=== PATIENT | male | born 1995 | race Caucasian/White ===

== ENCOUNTER 2021-02-25 13:16 | Emergency (ER) | payer OTHER ==
[2021-02-25 15:38] LABS: HEMOGLOBIN 14.9 gm/dl (14.0-17.5); RED BLOOD COUNT 5.18 M/UL (4.20-5.50); WHITE BLOOD COUNT 3.4 K/UL (4.5-11.0)
[2021-02-25 16:01] LABS: BUN/CREATININE RATIO 19 (0-10)
[2021-02-25] MEDS ORDERED: ZOFRAN ODT 4 MG4 MG PO (16:14)
== END 2021-02-25 17:12 | disposition home or self-care (01) ==
LOC: ER1 13:16
PROVIDERS: Student in an Organized Health Care Education/Training Program
DX: U07.1 COVID-19 (principal); F17.220 Nicotine dependence, chewing tobacco, uncomplicated
CPT/HCPCS: 80053; 82550; 82553; 85025; 99284